=== PATIENT | male | born 2005 | race Two or more races ===

== ENCOUNTER 2025-08-08 03:51 | Emergency (ER) | payer OTHER ==
[2025-08-08 04:24] LABS: BASOPHILS ABSOLUTE AUTO 0.06 K/uL (0.00-0.20); BASOPHILS PERCENT AUTO 0.5 % (0.0-1.0); EOSINOPHILS ABSOLUTE AUTO 0.10 K/uL (0.00-0.45); EOSINOPHILS PERCENT AUTO 0.9 % (0.0-6.0); IMMATURE GRAN ABSOLUTE AUTO 0.01 K/uL (0.00-0.05); IMMATURE GRAN PERCENT AUTO 0.1 % (0.0-0.4); LYMPHOCYTES ABSOLUTE AUTO 2.39 K/uL (1.00-4.80); LYMPHOCYTES PERCENT AUTO 21.3 % (24.0-44.0); MEAN PLATELET VOLUME 9.1 fL (9.4-12.4); MONOCYTES ABSOLUTE AUTO 1.06 K/uL (0.00-0.80); MONOCYTES PERCENT AUTO 9.5 % (0.0-8.0); NEUTROPHILS ABSOLUTE AUTO 7.58 K/uL (1.80-7.70); NEUTROPHILS PERCENT AUTO 67.7 % (41.0-71.0); NRBC ABSOLUTE 0.00 K/uL (0.00-0.02); NRBC PERCENT 0.0 /100WBC (0.0-0.2); PLATELET COUNT,PLT 275 K/uL (150-400); RED BLOOD CELL COUNT 5.10 M/uL (4.52-5.90); WHITE BLOOD CELL COUNT,WBC 11.20 K/uL (3.9-11.3)
[2025-08-08] MEDS: Ketorolac 30 MG/ML SDV IVPUSH ONE (04:25)
[2025-08-08] MEDS: diphenhydrAMINE 50 MG/ML SDV IVPUSH ONE (04:26)
[2025-08-08] MEDS: Prochlorperazine 10 MG/2 ML SDV IVPUSH ONE (04:26)
[2025-08-08 04:34] LABS: A/G RATIO 1.0 (0.9-1.6); ALANINE AMINOTRANSFERASE,ALT 17.0 IU/L (14-63); ASPARTATE AMNIOTRANSFERASE,AST 25.0 IU/L (15-37); BILIRUBIN TOTAL 1.0 mg/dL (0.2-1.0); BLOOD UREA NITROGEN,BUN 14.0 mg/dL (7.0-18.0); CARBON DIOXIDE,CO2 25.5 mmol/L (21.0-32.0); CHLORIDE,CL 102.0 mmol/L (98-107); CREATININE 1.1 mg/dL (0.8-1.3); EST CRCL DRUG DOSING (CG) 96.67 mL/min; GLUCOSE RANDOM 121.0 mg/dL (74-106); POTASSIUM,K 4.4 mmol/L (3.5-5.1); PROTEIN TOTAL,TP 7.7 g/dL (6.4-8.2); SODIUM,NA 137.0 mmol/L (136-148)
[2025-08-08 04:38] LABS: ESTIMATED GFR 99.0 mL/min (>60)
== END 2025-08-08 06:00 | disposition home or self-care (01) ==
LOC: MW.ED 03:51
DX: G43.909 Migraine, unspecified, not intractable, without status migrainosus (principal); Z75.3 Unavailability and inaccessibility of health-care facilities
CPT/HCPCS: 36415; 70450; 80053; 83735; 85025; 96361; 96374; 96375; 99284; J0780; J1200; J1885; J7030